=== PATIENT | male | born 1975 | race Caucasian/White ===

== ENCOUNTER → 2024-12-05 09:48 | Outpatient (REF) | payer OTHER, SELFPAY | LOC: UCDH 09:48 | PROVIDERS: ATTENDING PHYSICIAN Physician Assistant | DX: S99.911A Unspecified injury of right ankle, initial encounter (principal) | CPT/HCPCS: 73610 ==

== ENCOUNTER → 2025-04-02 07:21 | Outpatient (REF) | payer BC, SELFPAY | LOC: RAD 07:21 | PROVIDERS: ATTENDING PHYSICIAN Physician Assistant | DX: M25.532 Pain in left wrist (principal) | CPT/HCPCS: 73110; 73130 ==